=== PATIENT | female | born 1985 | race Hispanic/Latino ===

== ENCOUNTER 2017-07-05 11:48 | Emergency (ER) | payer OTHER ==
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
== END 2017-07-05 14:54 | disposition home or self-care (01) ==
LOC: SCSER 11:48
DX: S16.1XXA Strain of muscle, fascia and tendon at neck level, initial encounter (principal); S00.83XA Contusion of other part of head, initial encounter; Z71.6 Tobacco abuse counseling; V43.62XA Car passenger injured in collision with other type car in traffic accident, initial encounter
CPT/HCPCS: 70150; 99406

== ENCOUNTER 2019-06-03 00:54 | Emergency (ER) | payer OTHER ==
[2019-06-03] MEDS ORDERED: Morphine 4 MG/ML VIAL ONE (01:20)
[2019-06-03] MEDS ORDERED: Ondansetron PF 4 MG/2 ML Vial ONE (01:21)
[2019-06-03 01:35] LABS: #Basophils 0.1 thou/uL (0.0-0.2); #Eosinphils 0.2 thou/uL (0.0-0.7); #Lymphocytes 1.7 thou/uL (1.20-3.40); #Monocytes 0.8 thou/uL (0.11-0.59); #Neutrophils 7.8 thou/uL (1.40-6.50); %Basophils 0.8 % (0.0-1.0); %Eosinophils 1.6 % (0.0-10.0); %Lymphocytes 16.3 % (21.0-51.0); %Monocytes 7.3 % (0.0-10.0); %Neutrophils 73.9 % (42.0-75.0); Hemoglobin 12.9 g/dL (12.0-16.0); Mean Corpuscular HGB CONC 34.3 g/dL (32.0-36.0); Mean Corpuscular Volume 87.5 fL (78.0-98.0); Mean Platelet Volume 7.5 fL (7.4-10.4); Platelet Count 265 thou/uL (130-400); RBC Distribution Width 11.9 % (11.5-14.5); Red Blood Cell (RBC) Count 4.32 mill/uL (4.20-5.40); White Blood Cell (WBC) Count 10.6 thou/uL (4.8-10.8)
[2019-06-03 01:42] LABS: BHCG - Serum Negative (NEGATIVE); Pregs Control Background? CLEAR/WHITE (CLR/WHITE); Pregs Control Bar Appear? YES (CONTROL BAR)
[2019-06-03 01:45] LABS: ALT (SGPT) 17 U/L (8-55); AST (SGOT) 17 U/L (5-34); Albumin 4.2 g/dL (3.5-5.0); Alkaline Phosphatase 73 U/L (40-110); Anion Gap 16 mmol/L (10-20); BUN (Urea Nitrogen) 16 mg/dL (7.0-18.7); Bilirubin, Total 0.4 mg/dL (0.2-1.2); Calc. Creatinine Clearance 0 mL/min (70-130); Calcium 9.4 mg/dL (7.8-10.44); Carbon Dioxide 23 mmol/L (22-29); Chloride 105 mmol/L (98-107); Estimated GFR-MDRD 78; Globulin 2.9 g/dL (2.4-3.5); Glucose 134 mg/dL (70-105); Lipase 10 U/L (8-78); Protein, Total 7.1 g/dL (6.0-8.3); Sodium 140 mmol/L (136-145)
[2019-06-03 02:41] LABS: Bilirubin Negative (Negative); Blood, Urine Negative (Negative); Clarity Clear (Clear); Glucose, Urine (Dipstick) Negative (Negative); Leukocyte Negative (Negative); Nitrite Negative (Negative); Protein, Urine (Dipstick) Negative (Neg-Trace); Urobilinogen 0.2 mg/dL (Less than 2)
--- NOTE | 2019-06-03 08:02 | CT ---
PRELIMINARY REPORT/[facility]/AFTER HOURS PROCEDURE PROCEDURE INFORMATION: Exam: CT Abdomen And Pelvis Without Contrast Exam date and time: 06/03/2019 1:59 AM Clinical history: 33 years old, female; Patient HX: History given with no apparent limitations. Patie nt reports she had sudden onset of bilaterally lumbar back pain and generalized sharp abdominal pain at 2300 tonight. The pain then gradually improved and receded since then, occurring only at the suprapubic region now. She reports that urination made her pain worse initially, but denied having dy suria. Pain was also worse with movement, better when still. Nothing else made her symptoms better or worse. She denies having any other urine symptoms. She denies having any fever, n/v/d, or vaginal bleeding or discharge. She denies any other symptoms, complaints, or problems. Her last bm wa s yesterday and was normal. TECHNIQUE: Imaging protocol: Computed tomography of the abdomen and pelvis without contrast. COMPARISON: No relevant prior studies available. FINDINGS: Liver: Normal. No mass. Gallbladder and bile ducts: Normal. No calcified stones. No ductal dilation. Pancreas: Normal. No ductal dilation. Spleen: Normal. No splenomegaly. Adrenals: Normal. No mass. Kidneys and ureters: Normal. No hydronephrosis. Stomach and bowel: Unremarkable. No obstruction. No mucosal thickening. Appendix: The appendix is unremarkable and seen best on axial image 59 of series 2. Intraperitoneal space: Unremarkable. No free air. No significant fluid collection. Vasculature: Unremarkable. No abdominal aortic aneurysm. Lymph nodes: Unremarkable. No enlarged lymph nodes. Bladder: Unremarkable as visualized. Reproductive: There are postoperative changes of tubal ligation surgery. Bones/joints: Unremarkable. No acute fracture. Soft tissues: Unremarkable. IMPRESSION: No visible renal, ureteral or bladder calculi. Thank you for allowing us to participate in the care of your patient. Dictated and Authenticated by: Juan C Leonard MD 06/03/2019 2:34 AM Central Time ([place] & [place]) FINAL REPORT CT ABDOMEN AND PELVIS PERFORMED ON AN EMERGENCY BASIS 06/03/2019 0201 HOURS HISTORY: Bilateral flank pain. COMPARISON: 09/07/2015 FINDINGS: I agree with the preliminary report by Dr. Leonard from [facility]. No CT evidence of urinary tract obstruction or calcification. Lack of contrast limits evaluation for other abnormalities. Bilateral ligation clips of the fallopian tubes. CODE QA Transcribed Date/Time: 06/03/2019 8:55 AM
== END 2019-06-03 03:05 | disposition home or self-care (01) ==
LOC: SCSER 00:54
DX: R10.84 Generalized abdominal pain (principal); R10.813 Right lower quadrant abdominal tenderness; R10.814 Left lower quadrant abdominal tenderness
CPT/HCPCS: 74176; 80053; 81003; 83690; 84703; 85025; 96361; 96374; 96375; J2270; J2405